=== PATIENT | female | born 1985 | race Caucasian/White ===

== ENCOUNTER → 2018-12-12 | Outpatient (CLI) | payer SELFPAY ==
--- NOTE | 2018-12-12 16:13 | RADIOLOGY REPORT (SQ) ---
EXAM DESCRIPTION: U/S [id number] TRNABD 1GES W/ODOP COMPLETED DATE/TIME: 12/12/2018 1:41 pm REASON FOR STUDY: Z34.81 ENCOUNTER FOR SUPRVSN OF NORMAL , FIRST TRIMESTER Z34.81 ENCOUNTE R FOR SUPRVSN OF NORMAL , FIRST TRIM COMPARISON: None. TECHNIQUE: Transabdominal static and realtime grayscale images acquired of the pelvis. Additional se lected spectral and color Doppler images recorded. All images stored on PACs. bHCG: Not applicable. CLINICAL DATES: 9 week 2 day. LIMITATIONS: None. FINDINGS: FETUS: Single Living intrauterine . ULTRASOUND EGA: 8 week 4 day. ULTRASOUND CARLOTA: 07/20/2019. EFW: Not applicable less than 20 weeks. CRL: 1.9 cm. FHR: 140 beats per minute. SURVEY: No visualized anomalies. AMNIOTIC FLUID: Adequate amount. PLACENTA: Not yet developed due to early gestation. SUBCHORIONIC BLEED: No. SIZE OF BLEED: Not applicable. UTERUS: No masses. No anomalies. CERVICAL LENGTH: 1.9 cm. Closed. RIGHT ADNEXA: Ovary not identified due to poor acoustical window. No adnexal free fluid. No adnexal masses. LEFT ADNEXA: Left ovary surgically absent No adnexal free fluid. No adnexal masses. FREE FLUID: None. OTHER: No other significant finding. IMPRESSION: LIVING INTRAUTERINE . EGA 8 WEEK 4 DAY. Trimester of : First - 0 to 13 weeks. TECHNICAL DOCUMENTATION: JOB ID: [id number] [employer]- All Rights Reserved rev-01/26 Reading location - IP/workstation name: [email or web address]
== END ==
LOC: RAD 12:44
PROVIDERS: ATTEND Midwife
DX: Z34.81 Encounter for supervision of other normal pregnancy, first trimester (principal)
CPT/HCPCS: 76801

== ENCOUNTER 2019-06-18 11:34 | Outpatient (CLI) | payer MEDICAID ==
--- NOTE | 2019-06-18 13:09 | Non Stress Test Report ---
Non Stress Test Datetime Report Generated by CPN: 06/18/2019 13:09 DEMOGRAPHIC EGA NST: 36.1 INDICATION Indication for Study: Ordered by Provider; Other Indication for Study (NST) Other: AMA; POLY VITAL SIGNS Temperature - NST: 98.1 RESP - NST: 18 MONITORING Monitor Explained: Monitor Explained; Test Explained; Patient Verbalized Understanding Time on Monitor: 06/18/2019 11:43 Time off Monitor: 06/18/2019 12:59 NST Duration: 76 NST INTERVENTIONS NST Interventions: PO Hydration; Reposition Patient; Other NST Interventions Other: POPSICLE Physician Notified NST: J MCGRAW, CNM REVIEWED STRIP BABY A: [id number] BABY A Movement : Present Contraction Frequency : RARE FHR Baseline : 135 Accelerations : 15X15 (Annotations: Data stored by [facility] on behalf of user) Accelerations : 15X15 Decelerations : None Variability : Moderate 6-25bpm NST Review: Meets Criteria for Reactive NST NST Review and Verified By : NAUN Cope Results: Reactive NST REPORT Report Trigger: Send Report
== END 2019-06-18 13:06 | disposition home or self-care (01) ==
LOC: LC 11:34
PROVIDERS: ATTEND Obstetrics & Gynecology
PROC: 4A1HXCZ Monitoring of Products of Conception, Cardiac Rate, External Approach (ICD-10-PCS; principal; 2019-06-18)
DX: O40.3XX0 Polyhydramnios, third trimester, not applicable or unspecified (principal); O09.523 Supervision of elderly multigravida, third trimester; Z3A.36 36 weeks gestation of pregnancy

== ENCOUNTER 2019-07-08 07:03 | Inpatient (IN) | payer MEDICAID ==
[2019-07-08 07:40] LABS: ABSOLUTE EOSINOPHILS # (AUTO) 0.1 10^3/uL (0.0-0.6); ABSOLUTE LYMPHOCYTES (AUTO) 1.7 10^3/uL (0.5-4.7); ABSOLUTE MONOCYTES (AUTO) 0.5 10^3/uL (0.1-1.4); ABSOLUTE NEUT (AUTO) 9.1 10^3/uL (1.7-8.2); BASOPHILS % (AUTO) 0.3 % (0-2); EOSINOPHILS % (AUTO) 0.5 % (0-6); HEMATOCRIT 31.6 % (36.0-47.0); HEMOGLOBIN 10.7 g/dL (12.0-15.5); LYMPHOCYTES % (AUTO) 14.7 % (13-45); MEAN CORPUSCULAR HEMOGLOBIN 26.4 pg (27.0-33.4); MEAN CORPUSCULAR HGB CONC 33.7 g/dL (32.0-36.0); MEAN CORPUSCULAR VOLUME 78 fl (80-97); MONOCYTES % (AUTO) 4.7 % (3-13); PLATELET COUNT 278 10^3/uL (150-450); RED BLOOD COUNT 4.04 10^6/uL (3.72-5.28); RED CELL DISTRIBUTION WIDTH 13.9 % (11.5-14.0); SEGMENTED NEUTROPHILS % (AUTO) 79.8 % (42-78); TOTAL CELLS COUNTED % (AUTO) 100 %; WHITE BLOOD COUNT 11.4 10^3/uL (4.0-10.5)
[2019-07-08] MEDS ORDERED: OXYTOCIN/NORMAL SALINE 20 UNIT/1,000 ML RTUINJ IV PRN ×2 (08:02→17:32)
[2019-07-08] MEDS ORDERED: RINGERS SOLUTION,LACTATED 1,000 ML IV PRN (08:04)
[2019-07-08 08:19] LABS: APPEARANCE,URINE SLIGHTLY-CLOUDY; BILIRUBIN,URINE NEGATIVE (NEGATIVE); COLOR,URINE YELLOW; GLUCOSE, URINE NEGATIVE (NEGATIVE); KETONES,URINE NEGATIVE (NEGATIVE); LEUKOCYTE ESTERASE,URINE SMALL (NEGATIVE); NITRITE,URINE NEGATIVE (NEGATIVE); PROTEIN,URINE NEGATIVE (NEGATIVE); UROBILINOGEN,URINE NEGATIVE mg/dL (<2.0)
--- NOTE | 2019-07-08 08:24 | Admission Physical ---
Datetime Report Generated by CPN: 07/08/2019 08:23 CURRENT ADMISSION Indication for Induction: Polyhydramnios Admit Impression : Term, Intrauterine ; No Active Labor; Intact Membranes; Induction of Labor Admit Plan: Admit to Unit; Initiate Labor Induction Protocol ALLERGIES Medication Allergies: No Medication Allergies: No Known Allergies (07/08/2019) Latex: No Latex Allergies OBSTETRICAL HISTORY EDC: 07/15/2019 00:00 : 4 Para: 2 Term: 2 IAB: 1 Livin Cesareans: 0 Gestational Diabetes: No Rh Sensitization: No Incompetent Cervix: No HUMA: No Infertility: No ART Treatment: No Uterine Anomaly: No IUGR: No Hx Previous C/S: No Macrosomia: No Hx Loss/Stillborn: No PIH: No Hx : No Placenta Previa/Abruption: No Depression/PP Depression: Yes PTL/PROM: No Post Hemorrhage: No Obstetrical History Comments: g1-2002, EAB g2-2013, , 40 weeks, male, 7lb 7oz, 11 hours of labor, no complications g3-2016, , 41 weeks, male, 8lb 4oz, 9 hours of labor, no complications g4-current , poly, AMA SEE RECORDS Alcohol: No Marijuana : No Cocaine: No Other Illicit Drugs: No Cigarettes: Former Smoker. 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 Heart Disease: No Hosp/Surgery: Yes Autoimmune Disorder: No Anesthetic Complications: No Kidney Disease: No Abnormal Pap Smear: No Neuro/Epilepsy: No Psychiatric Disorders: No Other Medical Diseases: No Hepatitis/Liver Disease: No Significant Family History: No Varicosities/Phlebitis: No Trauma/Violence : No Thyroid Dysfunction: No Medical History Comments: dental issues during where pus pocket formed at base of tooth are required antibiotics, AMA, childbirth x 2, 2001-left salpingectomy and oophorectomy, depression with previous pregnancies INFECTIOUS HISTORY Gonorrhea: No Genital Herpes: No Chlamydia: No Tuberculosis: No Syphilis: No Hepatitis: No HIV/AIDS Exposure: No Rash or Viral Illness: No HPV: No PHYSICAL EXAM General: Normal HEENT: Normal Neurologic: Normal Thyroid: Normal Heart: Normal Lungs: Normal Breast: Normal Back: Normal Abdomen: Normal Genitourinary Exam: Normal Extremities: Normal DTRs: Normal Pelvic Type: Adequate Vital Signs: Reviewed; Within Normal Limits VAGINAL EXAM Dilatation: 3 Effacement: 25 Station: -3 Contraction Comments: irregular irregular MEMBRANES Membranes: Intact FETUS A Monitoring: External US FHR- Baseline: 150 Variability: Moderate 6-25bpm Accelerations: 15X15 Decelerations: None FHR Category: Category I Admit Comment: at 39.4 wks here for IOL due to polyhydramnios this . Pt denes compaints this morning. GBS negative, plans an epidural once in active labor. Spot check u/s this morning verifies Vtx presentation. VE 3/thick/ -3. PLan to start Pitocin and then AROM with regular contractions and cervical change. Attending MD is Dr Lam PLANS FOR LABOR AND DELIVERY Labor and Delivery: Other, Specify Pain Management: Epidural Feeding Preference: Breast Benefit of Breast Feed Discussed: Yes Circumcision: N/A INFORMED CONSENT Assignment: Suzanna Lam MD Signature: with User ID: Margaret : with User ID: Margaret
[2019-07-08] MEDS ORDERED: MISOPROSTOL 0.2 MG TABLET ONE (08:35)
[2019-07-08] MEDS ORDERED: OXYTOCIN/NORMAL SALINE 20 UNIT/1,000 ML RTUINJ ONE (08:35)
[2019-07-08] MEDS ORDERED: LIDOCAINE 1% INJ-PF (10 MG/ML) 30 ML SDV ONE (08:35)
[2019-07-08] MEDS ORDERED: OXYTOCIN 10 UNIT/ML VIAL ONE (08:35)
[2019-07-08 08:46] LABS: URINE AMPHETAMINES SCREEN NEGATIVE; URINE BARBITURATES SCREEN NEGATIVE; URINE BENZODIAZEPINES SCREEN NEGATIVE; URINE COCAINE SCREEN NEGATIVE; URINE MARIJUANA (THC) SCREEN NEGATIVE; URINE METHADONE SCREEN NEGATIVE; URINE PHENCYCLIDINE SCREEN NEGATIVE
[2019-07-08] MEDS ORDERED: FENTANYL/BUPIVACAINE/NS/PF 300 MCG/150 ML RTUINJ EPI ONE (15:00)
[2019-07-08] MEDS ORDERED: EPHEDRINE SULFATE INJ 50 MG/1 ML AMPULE ONE (15:00)
[2019-07-08] MEDS ORDERED: BUPIVACAINE HCL 0.25 % INJ/PF (2.5 MG/1 ML) 30 ML VIAL ONE (15:00)
[2019-07-08] MEDS ORDERED: PHENYLEPHRINE HCL INJ/PF 10 MG/1 ML SDV ONE (15:00)
[2019-07-08] MEDS ORDERED: FENTANYL CITRATE INJ/PF 100 MCG/2 ML AMPUL ONE (15:00)
[2019-07-08] MEDS ORDERED: BENZOCAINE/MENTHOL AEROSOL SPRAY 56 ML TOP PRN (17:32)
[2019-07-08] MEDS ORDERED: DIBUCAINE 1% OINTMENT 56 GM TP PRN (17:32)
[2019-07-08] MEDS ORDERED: ACETAMINOPHEN WITH CODEINE #3 TABLET PO PRN (17:32)
[2019-07-08] MEDS ORDERED: ZOLPIDEM TARTRATE 5 MG TABLET PO PRN (17:32)
[2019-07-08] MEDS ORDERED: DIPH/PERTUSS(ACELL)/TETANUS VAC/PF 0.5 ML SYR (>=10YO) IM PRN (17:32)
[2019-07-08] MEDS ORDERED: MEASLES,MUMPS&RUBELLA VACC/PF 0.5 ML VIAL SUBCUT PRN (17:32)
[2019-07-08] MEDS ORDERED: BENZOCAINE/MENTHOL AEROSOL SPRAY 56 ML ONE (18:23)
[2019-07-08] MEDS ORDERED: IBUPROFEN 800 MG TABLET ONE (18:23)
[2019-07-08] MEDS ORDERED: DOCUSATE SODIUM 100 MG CAPSULE ONE (18:28)
[2019-07-08] MEDS ORDERED: FERROUS SULFATE 325 MG TABLET PO ONE (18:28)
[2019-07-08] MEDS: IBUPROFEN 800 MG TABLET PO SCH ×2 (18:30→21:22)
[2019-07-08] MEDS: FERROUS SULFATE 325 MG TABLET PO SCH (18:30)
[2019-07-08] MEDS: DOCUSATE SODIUM 100 MG CAPSULE PO SCH (18:30)
--- NOTE | 2019-07-08 19:10 | Delivery Summary ---
Del Sum A-C Datetime Report Generated by CPN: 07/08/2019 19:10 DELIVERY PERSONNEL DELIVERY PERSONNEL: [id number] Delivery Doctor:: Lolita Amaro CNM Nurse Director Translational Certified:: Lolita Amaro CNM Labor and Delivery Nurse:: Destiny Akers RNarts and sciences dean Nurse:: KYLER Lorenzana Nursery Nurse:: Alessandra Avina RN Nursery Nurse:: Vika Aviles RN Ship'S Master/SURGICAL FIRST ASSISTANT: Lisseth Boss, ST MATERNAL INFORMATION Delivery Anesthesia: Epidural Medications After Delivery: Pitocin Bolus-Please Comment Meds After Delivery Comment: pitocin 20 units in 1 L NS bolusing per order Delivery QBL: 200 Maternal Complications: None Provider Comments: of VFI, ILBBY and compound presentation of the hand noted at delivery. Baby placed on pts abdoman, vigorous and crying. Cord clamped and cut after 90 seconds. Cord blood obtained. Placenta S/C/I, marginal cord insertion at placental edge noted. IV pitocin infusing, FF w/ decreased lochia. QBL 200 ml. Mother and baby left in stable condition after small vaginal side wall repair. Pt plans to breastfeed. Attending MD is Dr Lam LABOR SUMMARY EDC: 07/15/2019 00:00 No. Babies in Womb: 1 Attempted: No Labor Anesthesia: Epidural LABOR INFORMATION Reason for Induction: Polyhydramnios Onset of Labor: 07/08/2019 15:10 Complete Dilatation: 07/08/2019 17:00 Oxytocin: Induction Group B Beta Strep: negative Antibiotics # of Doses: 0 Antibiotics Time of Last Dose: n/a Name of Antibiotic Given: n/a Steroids Given: None Reason Steroids Not Administered: Not Applicable MEMBRANES Membranes Rupture Method: Artificial Rupture of Membranes: 07/08/2019 14:56 Length of Rupture (hr): 2.35 Amniotic Fluid Color: Clear Amniotic Fluid Amount: Large Amniotic Fluid Odor: Normal STAGES OF LABOR Stage 1 hr: 1 Stage 1 min: 50 Stage 2 hr: 0 Stage 2 min: 17 Stage 3 hr: 0 Stage 3 min: 5 Total Time in Labor hr: 2 Total Time in Labor min: 12 VAGINAL DELIVERY Episiotomy: None Laceration #1: Vaginal Laceration Extension #1: First Degree Other Laceration: right labial sidewall abrasion with repair Laceration Repair: Yes Laceration Repair Note: figure of eight stitch placed in Rt vaginal side wall for hemostasis Sponge Count Correct: N/A Sharps Count Correct: N/A CSECTION DELIVERY Primary Indication: N/A Secondary Indication: N/A CSection Incidence: N/A Labor: N/A Elective: N/A CSection Incision: N/A BABY A INFORMATION Infant Delivery Date/Time: 07/08/2019 17:17 Method of Delivery: Vaginal Born in Route : No : N/A Forceps: N/A Vacuum Extraction: N/A Shoulder Dystocia : No PRESENTATION/POSITION BABY A Presentation: Cephalic Cephalic Presentation: Vertex Vertex Position: Right Occipital Anterior Breech Presentation: N/A PLACENTA INFORMATION BABY A Placenta Delivery Time : 07/08/2019 17:22 Placenta Method of Delivery: Spontaneous Placenta Status: Delivered SCORES BABY A Heart Rate 1 min: >100 bpm Resp Effort 1 min: Good Cry Reflex Irritability 1 min: Cough or Sneeze or Pulls Away Muscle Tone 1 min: Active Motion Color 1 min: Body Babbitt, Extremities Blue Resuscitation Effort 1 min: Tactile Stimulation SCORE 1 MIN: 9 Heart Rate 5 min: >100 bpm Resp Effort 5 min: Good Cry Reflex Irritability 5 min: Cough or Sneeze or Pulls Away Muscle Tone 5 min: Active Motion Color 5 min: Body Babbitt, Extremities Blue Resuscitation Effort 5 min: N/A SCORE 5 MIN: 9 Resuscitation Effort 10 min: N/A INFANT INFORMATION BABY A Gestational Age at Delivery: 39.0 Gestational Status: Full Term- 39- 40.6 Weeks Outcome : Liveborn Condition : Stable Sex: Female IDENTIFICATION BABY A Verification Date/Time: 07/08/2019 17:37 ID Band Number: [id number] Mother's Name Verified: Yes Infant RN Verifying : Maryana Camp RNC Additional Verifying Personnel: Destiny Blumck RN WEIGHT/LENGTH BABY A Birthweight (gm): 3409 Weight (lb): 7 Weight (oz): 8 Length (in): 21.00 Infant Length (cm): 53.34 CORD INFORMATION BABY A No. Cord Vessels: 3 Nuchal Cord : N/A Nuchal Cord- Other: compound left hand Cord Blood Taken: Yes-For Storage (Mom's Blood type +) Suction: None ASSESSMENT BABY A Infant Complications: None Physical Findings at Delivery: Within Normal Limits Infant Respirations: Appears Normal Skin to Skin: Yes Skin to Skin Time (min): 60 Commercial Real Estate Attorney/ALS Called : No Infant Care By: Dorothy Dawkins RN, RN Transferred To: Remains with Mother BABY B INFORMATION : N/A SIGNATURES Assignment: Suzanna Lam MD Signature: with User ID: Margaret : with User ID: Margaret
[2019-07-09] MEDS: IBUPROFEN 800 MG TABLET PO SCH ×3 (05:20→22:18)
[2019-07-09 06:28] LABS: HEMATOCRIT 27.6 % (36.0-47.0); HEMOGLOBIN 9.3 g/dL (12.0-15.5); MEAN CORPUSCULAR HEMOGLOBIN 26.1 pg (27.0-33.4); MEAN CORPUSCULAR HGB CONC 33.8 g/dL (32.0-36.0); MEAN CORPUSCULAR VOLUME 77 fl (80-97); PLATELET COUNT 243 10^3/uL (150-450); RED BLOOD COUNT 3.57 10^6/uL (3.72-5.28); WHITE BLOOD COUNT 14.4 10^3/uL (4.0-10.5)
[2019-07-09] MEDS ORDERED: GLYCERIN/WITCH HAZEL LEAF 1 EACH MED..WIPE TP PRN (09:05)
--- NOTE | 2019-07-09 09:39 | PDOC PROGRESS REPORT ---
Subjective-OB Progress Note for:: 07/09/19 Subjective: Pt doing well, no concerns. She reports light bleeding, regular diet and voiding without difficulty. Physical Exam (OB) Vital Signs: Temp Pulse Resp BP Pulse Ox 98.1 F 67 16 131/78 H 100 07/09/19 08:04 07/09/19 08:04 07/09/19 08:04 07/09/19 08:04 07/09/19 08:04 Intake & Output 07/08/19 07/09/19 07/10/19 06:59 06:59 06:59 Weight 81.2 kg - PIH/Pre-Eclampsia DTR's: 2 + Clonus: Negative Headache: Absent Epigastric Pain: No Visual Changes: No - Lochia Lochia Amount: Scant < 10 ml Lochia Color: Rubra/Red - Abdomen Description: Soft Hernia Present: No Fundal Description: Firm Fundal Height: u/u - u/2 Objective-Diagnostic Laboratory: 07/09/19 05:51 07/09/19 05:51 WBC 14.4 H RBC 3.57 L Hgb 9.3 L Hct 27.6 L MCV 77 L MCH 26.1 L MCHC 33.8 RDW 14.0 Plt Count 243 Assessment and Plan(PN) - Assessment and Plan (1) Vaginal delivery Is this a current diagnosis for this admission?: Yes - Time Spent with Patient Time with patient: Less than 15 minutes Medications reviewed and adjusted accordingly: Yes - Disposition Anticipated Discharge: Home Within: within 24 hours
[2019-07-09] MEDS: PRENATAL VITAMIN W DHA CAPSULE PO SCH (09:55)
[2019-07-09] MEDS: SENNOSIDES/DOCUSATE 8.6-50 MG 1 EACH TABLET PO SCH (09:56)
[2019-07-09] MEDS: FERROUS SULFATE 325 MG TABLET PO SCH ×2 (09:56→17:31)
[2019-07-09] MEDS: DOCUSATE SODIUM 100 MG CAPSULE PO SCH ×2 (09:56→17:31)
[2019-07-10] MEDS: IBUPROFEN 800 MG TABLET PO SCH (05:58)
[2019-07-10 07:53] VITALS: BP 127/76
[2019-07-10] MEDS: DOCUSATE SODIUM 100 MG CAPSULE PO SCH (09:28)
[2019-07-10] MEDS: PRENATAL VITAMIN W DHA CAPSULE PO SCH (09:28)
[2019-07-10] MEDS: SENNOSIDES/DOCUSATE 8.6-50 MG 1 EACH TABLET PO SCH (09:28)
[2019-07-10] MEDS: FERROUS SULFATE 325 MG TABLET PO SCH (09:28)
--- NOTE | 2019-07-10 09:58 | PDOC DISCHARGE SUMMARY ---
Impression - Admit/DC Date/PCP Admission Date/Primary Care Provider: 07/08/19 07:03 JOSE ROBERTO HORTA MD Discharge Date: 07/10/19 - Discharge Diagnosis (1) Anemia complicating , third trimester Is this a current diagnosis for this admission?: Yes (2) Encounter for induction of labor Is this a current diagnosis for this admission?: Yes (3) Polyhydramnios affecting in third trimester Is this a current diagnosis for this admission?: Yes (4) Vaginal delivery Is this a current diagnosis for this admission?: Yes (5) Is this a current diagnosis for this admission?: Yes (6) High vaginal laceration during delivery, delivered Is this a current diagnosis for this admission?: Yes (7) Obstetric labial laceration, delivered, current hospitalization Is this a current diagnosis for this admission?: Yes (8) Advanced maternal age (AMA) in Is this a current diagnosis for this admission?: Yes - Additional Information Resuscitation Status: Full Code Discharge Diet: As Tolerated, Regular Discharge Activity: Activity As Tolerated, Balance Activity w/Rest, No Lifting Over 10 Pounds, Pelvic Rest, No tub bath, Walk Frequently [facility] [[facility]] Prescriptions: Ibuprofen [Motrin 800 mg Tablet] 800 mg PO Q8HP PRN #20 tablet PRN Reason: For Pain Scale 1-3 Home Medications: No122/Iron/Folic Acid [ Multi Tablet] 1 each PO DAILY 02/02/16 L.acidoph,Paracasei, B.lactis [Probiotic] 1 tab PO DAILY 06/18/19 Docusate Sodium [Colace 100 mg Capsule] 100 mg PO BID capsule 07/10/19 Ferrous Sulfate [Feosol 325 mg Tablet] 325 mg PO BID tablet 07/10/19 Ibuprofen [Motrin 800 mg Tablet] 800 mg PO Q8HP PRN #20 tablet 07/10/19 Results Laboratory Results: WBC 14.4 10^3/uL (4.0-10.5) H 07/09/19 05:51 RBC 3.57 10^6/uL (3.72-5.28) L 07/09/19 05:51 Hgb 9.3 g/dL (12.0-15.5) L 07/09/19 05:51 Hct 27.6 % (36.0-47.0) L 07/09/19 05:51 MCV 77 fl (80-97) L 07/09/19 05:51 MCH 26.1 pg (27.0-33.4) L 07/09/19 05:51 MCHC 33.8 g/dL (32.0-36.0) 07/09/19 05:51 RDW 14.0 % (11.5-14.0) 07/09/19 05:51 Plt Count 243 10^3/uL (150-450) 07/09/19 05:51 Lymph % (Auto) 14.7 % (13-45) 07/08/19 07:22 [place] % (Auto) 4.7 % (3-13) 07/08/19 07:22 Eos % (Auto) 0.5 % (0-6) 07/08/19 07:22 Baso % (Auto) 0.3 % (0-2) 07/08/19 07:22 Absolute Neuts (auto) 9.1 10^3/uL (1.7-8.2) H 07/08/19 07:22 Absolute Lymphs (auto) 1.7 10^3/uL (0.5-4.7) 07/08/19 07:22 Absolute Monos (auto) 0.5 10^3/uL (0.1-1.4) 07/08/19 07:22 Absolute Eos (auto) 0.1 10^3/uL (0.0-0.6) 07/08/19 07:22 Absolute Basos (auto) 0.0 10^3/uL (0.0-0.2) 07/08/19 07:22 Seg Neutrophils % 79.8 % (42-78) H 07/08/19 07:22 Urine Color YELLOW 07/08/19 07:14 Urine Appearance SLIGHTLY-CLOUDY 07/08/19 07:14 Urine pH 7.0 (5.0-9.0) 07/08/19 07:14 Ur Specific [place] 1.010 07/08/19 07:14 Urine Protein NEGATIVE mg/dL (NEGATIVE) 07/08/19 07:14 Urine Glucose (UA) NEGATIVE mg/dL (NEGATIVE) 07/08/19 07:14 Urine Ketones NEGATIVE mg/dL (NEGATIVE) 07/08/19 07:14 Urine Blood NEGATIVE (NEGATIVE) 07/08/19 07:14 Urine Nitrite NEGATIVE (NEGATIVE) 07/08/19 07:14 Urine Bilirubin NEGATIVE (NEGATIVE) 07/08/19 07:14 Urine Urobilinogen NEGATIVE mg/dL (<2.0) 07/08/19 07:14 Ur Leukocyte Esterase SMALL (NEGATIVE) H 07/08/19 07:14 Urine Ascorbic Acid NEGATIVE (NEGATIVE) 07/08/19 07:14 Urine Opiates Screen NEGATIVE 07/08/19 07:14 Urine Methadone Screen NEGATIVE 07/08/19 07:14 Ur Barbiturates Screen NEGATIVE 07/08/19 07:14 Ur Phencyclidine Scrn NEGATIVE 07/08/19 07:14 Ur Amphetamines Screen NEGATIVE 07/08/19 07:14 U Benzodiazepines Scrn NEGATIVE 07/08/19 07:14 Urine Cocaine Screen NEGATIVE 07/08/19 07:14 U Marijuana (THC) Screen NEGATIVE 07/08/19 07:14 RPR NONREACTIVE (NONREACTIVE) 07/08/19 07:22 Blood Type A POSITIVE 07/08/19 07:22 Antibody Screen NEGATIVE 07/08/19 07:22
== END 2019-07-10 01:55 | disposition home or self-care (01) | DRG 806 ==
LOC: LR 07:03 → 2S 20:02
PROVIDERS: ADMIT Obstetrics & Gynecology; ATTEND Obstetrics & Gynecology
PROC: 10E0XZZ Delivery of Products of Conception, External Approach (ICD-10-PCS; principal; 2019-07-08)
PROC: 0UQGXZZ Repair Vagina, External Approach (ICD-10-PCS; 2019-07-08)
PROC: 3E033VJ Introduction of Other Hormone into Peripheral Vein, Percutaneous Approach (ICD-10-PCS; 2019-07-08)
PROC: 10907ZC Drainage of Amniotic Fluid, Therapeutic from Products of Conception, Via Natural or Artificial Opening (ICD-10-PCS; 2019-07-08)
DX: O40.3XX0 Polyhydramnios, third trimester, not applicable or unspecified (principal); O71.4 Obstetric high vaginal laceration alone; Z37.0 Single live birth; O32.6XX0 Maternal care for compound presentation, not applicable or unspecified; O99.013 Anemia complicating pregnancy, third trimester; Z3A.39 39 weeks gestation of pregnancy
CPT/HCPCS: 36415; 80307; 81005; 85025; 85027; 86592; 86850; 86900; 86901; 94760; J2370; J2590; J3010; J3490